=== PATIENT | male | born 1950 | race Caucasian/White ===

== ENCOUNTER 2019-08-13 13:11 | Day surgery (SDC) | payer OTHER, SELFPAY ==
[2019-08-13 13:40] VITALS: BP 143/88; PULSE 69; RESP 16; TEMP 36.8; O2SAT 97; BMI 23.1
[2019-08-13] MEDS: SODIUM CHLORIDE 0.9% 1,000 ML 200 ML IV (14:00)
--- NOTE | 2019-08-13 14:31 | P.HP_ITS ---
History of Present Illness History of Present Illness Date Patient Seen: 08/13/19 Time Patient Seen: 14:31 Chief complaint: [id number] Narrative: This is a 69-year-old man with personal history of colon polyps. He has had 2 colonoscopies before, and he is here for his follow-up surveillance colonoscopy. He denies any unexplained abdominal pain, unexplained weight loss, hematochezia, or melena. He says he is otherwise healthy denies any heart problems or blood thinners. ROS Reports Peripheral neuropathy in feet, denies nausea, denies recent cold symptoms, reports back pain, reports symptoms of enlarged prostate. Thirteen system review is otherwise negative other than as mentioned below and in HPI. PE: GENERAL: Well groomed and cooperative. Appears stated age. Answers questions promptly and appropriately. Vital signs noted. HENT: Normocephalic, atraumatic. Hearing intact. Oral mucosa is pink and moist. EYES: Conjunctiva pink, sclera white, no periorbital swelling. CARDIOVASCULAR: Regular rate. No pedal edema. RESPIRATORY: Non-tachypneic, breathing comfortably on room air. GASTROINTESTINAL: Abdomen soft and non-distended GENITALURINARY: No flank tenderness. MUSCULOSKELETAL: Equal tone and mass bilaterally. SKIN: Warm, dry, soft, appropriate color for ethnicity. No other lesions, rashes, or wounds. NEURO: Alert and Oriented X 3. No gross sensory deficits, or cognitive issues. PSYCH: Appropriate affect and mood. Patient History Family & Social History Social History: household members spouse Tobacco & Substance use: Tobacco type cigarettes Smoking Status Former smoker alcohol intake current alcohol intake frequency 0-2 drinks per day Substance Use Type marijuana Meds Home Medications and Allergies Home Medications Medication Instructions Recorded Confirmed Type Centrum Silver Men DAILY 08/13/19 History [place]-3 1,000 mg DAILY 08/13/19 08/13/19 History Vitamin D3 1,000 mg DAILY 08/13/19 08/13/19 History black cohosh 40 mg DAILY 08/13/19 08/13/19 History tamsulosin 0.4 mg DAILY 08/13/19 08/13/19 History Allergies Allergy/AdvReac Type Severity Reaction Status Date / Time Penicillins AdvReac Mild Hives Verified 08/13/19 13:32 Exam Vital Signs (past 8 hours): - 08/13/19 13:40 Temperature 98.3 F Pulse Rate 69 Respiratory Rate 16 Blood Pressure 143/88 H Pulse Oximetry 97 Oxygen Delivery Method Room Air Assessment & Plan Assessment and plan (1) Personal history of colonic polyps: Current visit: Yes Status: Acute Assessment & Plan narrative: Risks and benefits of screening colonoscopy and possible polypectomy were discussed with the patient including risk of bleeding, perforation, need for additional procedures, risks of anesthesia. The patient desires to proceed with the colonoscopy procedure. Time Spent With Patient Time with patient: 15-24 minutes Quality VTE Deep Vein Thrombosis/Pulmonary Embolism Present on Admission: No
[2019-08-13] MEDS: fentaNYL 250 MCG/5 ML INJ IV (14:48)
[2019-08-13] MEDS: MIDAZOLAM 5 MG/5 ML VIAL IV (14:49)
--- NOTE | 2019-08-13 14:51 | PM.OP.ENDO ---
Operative Date/Time/Diagnoses Date of procedure: 08/13/19 Time of procedure: 14:51 Pre-op diagnosis: Personal history of colon polyps Post-op diagnosis: other (Diverticulosis, no polyps seen on this procedure) Procedure & Clinicians Study performed: Surveillance colonoscopy Same procedure as scheduled: Yes Indications: Personal history of colon polyps Surgeon: Estephania Hull Procedure Notes SCOAP/Timeout: Performed Procedure in detail: The patient was brought to the room and placed in left lateral decubitus position with all bony prominences padded. A time-out was performed and then the patient was given procedural sedation starting with 4 mg of Versed and 100 mcg of fentanyl. Total of 7 mg of Versed and 250 micro g of fentanyl were given for the entire procedure. Vitals were monitored throughout the procedure and remained stable. Once adequately sedated the procedure was begun. A rectal exam was performed revealing no abnormalities. The colonoscope was then introduced to the rectum and advanced to the cecum in the usual fashion. The cecum was identified by the appendiceal orifice, the mucosal tri-fold, and the ileocecal valve. Moderate diverticulosis was seen throughout the descending and sigmoid colon. The scope was then retracted while rotating side to side and examining each mucosal fold. At the conclusion of the procedure retroflexion was performed and moderate grade 2-3 internal hemorrhoids without stigmata of bleeding were seen. The scope was then withdrawn from the rectum the procedure was concluded. The patient tolerated the procedure well and was transferred to the PACU in stable condition. Scope withdrawal time: 8 Sedation minutes: 16 Findings: diverticulosis (Moderate to severe) and internal hemorrhoids (Grade 2-3) Specimen(s): none sent Complications: none Impression: Moderate diverticulosis, moderate internal hemorrhoids Post-procedure Recommendations: Other recommendation (Colonoscopy in 7 years, due to personal history of colon polyps) Follow up: as needed Disposition: PACU
[2019-08-13 14:59] VITALS: BP 113/80; PULSE 53; RESP 10; TEMP 36.5; O2SAT 92
[2019-08-13 15:04] VITALS: BP 114/79; PULSE 53; RESP 11; O2SAT 93
[2019-08-13 15:09] VITALS: BP 113/77; PULSE 53; RESP 12; O2SAT 92
[2019-08-13 15:15] VITALS: BP 127/85; PULSE 58; RESP 12; TEMP 36.6; O2SAT 94
[2019-08-13 15:33] VITALS: BP 121/83; PULSE 67; RESP 16; TEMP 36.7; O2SAT 94
== END 2019-08-13 15:36 | disposition home or self-care (01) ==
PROVIDERS: Family Provider Internal Medicine; PCP Internal Medicine; Referring Provider Surgery; Visit Provider Surgery
PROC: 0DJD8ZZ Inspection of Lower Intestinal Tract, Via Natural or Artificial Opening Endoscopic (ICD-10-PCS; CPT 45378; principal; 2019-08-13 14:30)
DX: Z12.11 Encounter for screening for malignant neoplasm of colon (principal); Z86.010 Personal history of colon polyps; K57.30 Diverticulosis of large intestine without perforation or abscess without bleeding; K64.0 First degree hemorrhoids
CPT/HCPCS: G0105; 99152; J2250; J3010

== ENCOUNTER → 2023-04-12 10:50 | Outpatient (CLI) | payer OTHER, SELFPAY ==
--- NOTE | 2023-04-12 10:53 | DI.MRI.S_ITS ---
PROCEDURE: MR LUMBAR SPINE WO CON INDICATIONS: Radiculopathy, lumbar region TECHNIQUE: Noncontrast sagittal T1 spin echo and T2 fast echo, sagittal STIR, and T2 fast spin echo through the lumbar spine. In cases with scoliosis, additional coronal T2 fast spin echo may be performed. COMPARISON: None. FINDINGS: Image quality: Excellent. Alignment and Curvature: Mild levocurvature of the lumbar spines. Straightening of the normal lumbar lordosis. Mild retrolisthesis of L2 on L3 and mild anterolisthesis of L3 on L4. Bone Marrow: Multilevel Modic type 2 degenerative endplate changes. Marrow is of normal overall signal. No acute vertebral body compression fractures. Spinal Cord: Conus medullaris terminates at the L1 level. Visualized cord demonstrates normal signal and size. Paraspinous Soft Tissues: No paravertebral masses. T12-L1: Facet arthropathy and thickening of ligamentum flavum. No central canal or neural foraminal stenosis. Right perineural cyst. L1-L2: Disc desiccation and height loss. Facet arthropathy and thickening of ligamentum flavum. No significant central canal stenosis. Mild bilateral neural foraminal stenosis. L2-L3: Severe disc desiccation and height loss. Small posterior disc bulge. Facet arthropathy and thickening of ligamentum flavum. Moderate to severe central canal stenosis. Mild bilateral neural foraminal stenosis. L3-L4: Disc desiccation and height loss. Posterior disc bulge. Facet arthropathy and thickening of ligamentum flavum. Epidural lipomatosis. Moderate central canal stenosis. Narrowing of the right lateral recess with abutment versus impingement of the descending right L4 nerve root. Mild bilateral neural foraminal stenosis. L4-L5: Disc desiccation and height loss. Posterior disc bulge. There is a superimposed right foraminal cranially directed disc extrusion. Facet arthropathy and thickening of the ligamentum flavum. Mild to moderate central canal stenosis. Severe narrowing of the right neural foramina. Mild left neural foraminal stenosis. L5-S1: Severe disc desiccation and height loss. Right lateral recess disc protrusion. Disc protrusion within the left lateral recess, inferiorly directed. This results in narrowing of the right greater than left lateral recesses with abutment versus impingement of the descending S1 nerve roots. Facet arthropathy. Mild left neural foraminal stenosis. No right neural foraminal stenosis. IMPRESSION: 1. Multilevel degenerative changes of the lumbar spine as described above. 2. Moderate to severe central canal stenosis at L2-L3 and moderate central canal stenosis at L3-L4. 3. Narrowing of the right lateral recess at L3-L4 with possible impingement of the descending right L4 nerve root. Narrowing of the lateral recesses bilaterally at L5-S1 with possible impingement of the descending S1 nerve roots. 4. Severe neural foraminal stenosis on the right at L4-5. Additional levels of mild and moderate neural foraminal stenosis as described above. Dictated by: Santo Peter M.D. on 04/12/2023 at 12:16 Approved by: Santo Peetr M.D. on 04/12/2023 at 12:22
== END ==
PROVIDERS: Family Provider Internal Medicine; PCP Internal Medicine; Referring Provider Physical Medicine & Rehabilitation; Visit Provider Physical Medicine & Rehabilitation
DX: M47.26 Other spondylosis with radiculopathy, lumbar region (principal); M47.27 Other spondylosis with radiculopathy, lumbosacral region; M48.061 Spinal stenosis, lumbar region without neurogenic claudication; M48.07 Spinal stenosis, lumbosacral region
CPT/HCPCS: 72148